=== PATIENT | male | born 1960 | race Caucasian/White ===

== ENCOUNTER → 2017-08-30 | Outpatient (CLI) | payer OTHER ==
[~2017-08-30] MED LIST: ALMASICH PO; ASPI81CH PO; ATOR10 PO; AZAT50 PO; LISI5 PO; LOSA50 PO; METF500C PO; Multivitamin1 EAC1 PO; OMEP20ER PO; PYRI60 PO; SIMV10
== END | disposition home or self-care (01) ==
LOC: LAB 15:45
DX: E11.65 Type 2 diabetes mellitus with hyperglycemia (principal)
CPT/HCPCS: 82043

== ENCOUNTER 2018-07-25 09:55 | Day surgery (SDC) | payer OTHER ==
[~2018-07-25] VITALS: Ht 167.6 cm; Wt 112.5 kg
[~2018-07-25 09:55] MED LIST changes: +GLIP10ER PO; +INSULANPEN SC; +Lisinopril2.5 MG PO; +SIMV10 PO
[2018-07-25] MEDS ORDERED: Cellcept500 MG PO (10:49)
--- NOTE | 2018-07-25 15:00 | NUR ---
07/25/18 1500 AniyaLita L 1234 DISCHARGED HOME IN STABLE CONDITION W/INSTRUCTIONS FOR CARE AND F/U. EYE CARE KIT WAS GIVEN AND SHIELD IBNTACT TO LEFT EYE. HAD NO PAIN AND NO NAUSEA T/O RECOVERY. PAULA PO FLUIDS WELL PRIOR TO DC. AMBU TO CAR W/SBA X1 PAULA WELL
== END 2018-07-25 12:35 | disposition home or self-care (01) ==
LOC: ORSCSDS 09:55
PROVIDERS: Ophthalmology
PROC: 08RK3JZ Replacement of Left Lens with Synthetic Substitute, Percutaneous Approach (ICD-10-PCS; principal; 2018-07-25 11:30)
DX: H25.12 Age-related nuclear cataract, left eye (principal); I10 Essential (primary) hypertension; E11.9 Type 2 diabetes mellitus without complications; G70.00 Myasthenia gravis without (acute) exacerbation; E78.5 Hyperlipidemia, unspecified; Z79.82 Long term (current) use of aspirin; Z79.4 Long term (current) use of insulin; Z79.899 Other long term (current) drug therapy
CPT/HCPCS: 82947; J2001; J2250; J3010; J7120; V2632

== ENCOUNTER 2018-09-23 07:15 | Day surgery (SDC) | payer OTHER ==
[~2018-09-23] VITALS: Ht 167.6 cm; Wt 111.1 kg
[~2018-09-23 07:15] MED LIST changes: +BASAGLAR K100 UNIT/1 SC; +Cellcept500 MG PO; -GLIP10ER PO; +Glucotrol Xl10 MG; +LO-DOSE ASPIRIN81 MG PO
== END 2018-09-23 09:18 | disposition home or self-care (01) ==
LOC: ORSCSDS 07:15
PROVIDERS: Internal Medicine Gastroenterology
PROC: 0DBM8ZX Excision of Descending Colon, Via Natural or Artificial Opening Endoscopic, Diagnostic (ICD-10-PCS; principal; 2018-09-23 08:30)
DX: Z12.11 Encounter for screening for malignant neoplasm of colon (principal); D12.4 Benign neoplasm of descending colon; Z86.010 Personal history of colon polyps; K57.30 Diverticulosis of large intestine without perforation or abscess without bleeding; K64.8 Other hemorrhoids; K64.4 Residual hemorrhoidal skin tags; E11.9 Type 2 diabetes mellitus without complications; E66.01 Morbid (severe) obesity due to excess calories; Z68.39 Body mass index [BMI] 39.0-39.9, adult; Z79.82 Long term (current) use of aspirin; Z79.84 Long term (current) use of oral hypoglycemic drugs; Z79.899 Other long term (current) drug therapy
CPT/HCPCS: 82947; 88305; J0330; J0461; J1980; J2405; J7120

== ENCOUNTER 2018-10-03 12:04 | Day surgery (SDC) | payer OTHER ==
[~2018-10-03] VITALS: Ht 165.1 cm; Wt 111.5 kg
== END 2018-10-03 14:47 | disposition home or self-care (01) ==
LOC: ORSCSDS 12:04
PROVIDERS: Ophthalmology
PROC: 08RJ3JZ Replacement of Right Lens with Synthetic Substitute, Percutaneous Approach (ICD-10-PCS; principal; 2018-10-03 14:00)
DX: H25.11 Age-related nuclear cataract, right eye (principal); E11.9 Type 2 diabetes mellitus without complications; I10 Essential (primary) hypertension; G47.33 Obstructive sleep apnea (adult) (pediatric); E66.01 Morbid (severe) obesity due to excess calories; Z68.41 Body mass index [BMI] 40.0-44.9, adult; Z79.82 Long term (current) use of aspirin; Z79.84 Long term (current) use of oral hypoglycemic drugs; Z79.899 Other long term (current) drug therapy
CPT/HCPCS: 82947; J2250; J3010; V2632

== ENCOUNTER 2019-04-25 20:10 | Observation (INO) | payer OTHER ==
[~2019-04-25] VITALS: Ht 165.1 cm; Wt 107.5 kg
[~2019-04-25 20:10] MED LIST changes: -BASAGLAR K100 UNIT/1 SC; -Cellcept500 MG PO; -LO-DOSE ASPIRIN81 MG PO; -Lisinopril2.5 MG PO; -METF500C PO; -Multivitamin1 EAC1 PO; -PYRI60 PO; -SIMV10 PO
[2019-04-25 20:40] LABS: BASOPHILS ABSOLUTE AUTO 0.03 K/mm3 (0.00-0.23); BASOPHILS PERCENT AUTO 0 % (0-2); EOSINOPHILS PERCENT AUTO 1 % (0-6); Hematocrit 46.7 % (37.0-53.0); Hemoglobin 15.2 g/dL (13.5-17.5); IMMATURE GRAN ABSOLUTE AUTO 0.04 K/mm3 (0.00-0.10); IMMATURE GRAN PERCENT AUTO 1 % (0-1); LYMPHOCYTES ABSOLUTE AUTO 1.66 K/mm3 (0.84-5.20); LYMPHOCYTES PERCENT AUTO 19 % (21-46); MONOCYTES ABSOLUTE AUTO 0.49 K/mm3 (0.16-1.47); MONOCYTES PERCENT AUTO 6 % (4-13); Mean Corpuscular HGB 26.9 pg (26.0-34.0); Mean Corpuscular HGB Conc 32.5 g/dL (31.5-36.5); Mean Corpuscular Volume 83 fL (80-100); Mean Platelet Volume 10.8 fL (9.1-12.4); NEUTROPHILS ABSOLUTE AUTO 6.56 K/mm3 (1.96-9.15); NEUTROPHILS PERCENT AUTO 74 % (41-73); Platelet Count 235 K/mm3 (150-400); RDW Standard Deviation 38.8 fL (35.1-46.3); Red Blood Cell Count 5.65 M/mm3 (4.30-5.90); White Blood Cell Count 8.88 K/mm3 (4.00-11.30)
[2019-04-25 20:56] LABS: Alanine Aminotransfer (ALT/SGP 42 U/L (12-78); Albumin/Globulin Ratio 1.1 (0.8-1.8); Alk Phos 105 U/L (50-136); Anion Gap 9 mmol/L (6-16); Aspartate Aminotrans (AST/SGOT 24 U/L (12-37); Bilirubin, Total 0.5 mg/dL (0.1-1.0); Blood Urea Nitrogen 12 mg/dL (8-24); Bun/Creatinine Ratio 12.5 (12.0-20.0); CO2, Blood 25 mmol/L (21-32); Calcium, Blood 8.9 mg/dL (8.5-10.1); Chloride, Blood 105 mmol/L (98-108); Creatinine, Blood 0.96 mg/dL (0.60-1.20); Globulin, Blood 3.6 g/dL (2.2-4.0); Glomerular Filtration Rate >60 (60-); Glucose, Blood 153 mg/dL (70-99); Potassium, Blood 3.8 mmol/L (3.5-5.5); Sodium, Blood 139 mmol/L (136-145); Total Protein, Blood 7.6 g/dL (6.4-8.2)
[2019-04-25] MEDS ORDERED: METF500C PO (21:36)
[2019-04-25] MEDS ORDERED: Multivitamin1 EAC1 PO (21:37)
[2019-04-25] MEDS ORDERED: SIMV10 PO (21:37)
[2019-04-25] MEDS ORDERED: PYRI60 PO (21:37)
[2019-04-25] MEDS ORDERED: Aspir 8181 MG PO (21:38)
[2019-04-25] MEDS ORDERED: Lisinopril2.5 MG PO (21:38)
[2019-04-25] MEDS ORDERED: BASAGLAR K100 UNIT/1 SC (21:38)
[2019-04-25] MEDS ORDERED: Cellcept500 MG PO (21:38)
[2019-04-26 05:10] LABS: Cholesterol 181 mg/dL (50-200); HDL Cholesterol 36 mg/dL (>39); LDL/HDL RATIO 2.3; Low Density Lipoprotein Chol 82 mg/dL (0-110); Triglycerides 313 mg/dL (30-160); Very Low Density Lipoprot Chol 62 mg/dL (6-32)
--- NOTE | 2019-04-26 06:36 | NUR ---
SHIFT SUMMARY PT APPEARED TO REST WELL AFTER ARRIVING TO UNIT. NO COMPPLAINTS OF N/T, NO PAIN, NO SOB. WILL CONTINUE TO MONITOR.
--- NOTE | 2019-04-26 11:02 | NUR ---
Echocardiogram using 9.0ml fo agitated saline cotrast performed.
--- NOTE | 2019-04-27 03:45 | NUR ---
SHIFT SUMMARY PT HAS APPEARED TO REST COMFORTABLY THIS SHIFT. HE HAS AN ORDER IN FOR CELLCEPT 2 TABS TWICE DAILY BUT REFUSES TO TAKE BOTH TABS. SAYS HE HAS ONLY TAKEN ONE TAB BID FOR THE PAST YEAR EVEN THOUGH HIS PRESCRIPTION IS FOR THE 2 TABS BID. WILL CONTINUE TO MONITOR.
--- NOTE | 2019-04-27 12:30 | NUR ---
D/C ORDER STATES TO CONTINUE ATORVASTATIN. PT IS ON SIMVASTATIN AT HOME. PER CJ PIZANO FOR PT TO CONTINUE HOME MED OF SIMVASTATIN D/C MED REC SHOWS.
--- NOTE | 2019-04-27 13:08 | NUR ---
PT DISCHARGED PT DISCHARGED IN STABLE CONDITION WITH VSS. PT EDUCATED ON DC INSTRUCTIONS & FOLLOW UP APPOINTMENTS. PT WHEELED OUT BY AIDE & DRIVEN HOME BY COUSIN. PT DENIES QUESTIONS PRIOR TO DC.
== END 2019-04-27 12:54 | disposition home or self-care (01) ==
LOC: ER 20:10 → MEDS 20:11 → ER 22:00 → MEDS 22:35
PROVIDERS: Emergency Medicine; Nurse Practitioner Acute Care; ADMIT Internal Medicine
DX: G45.9 Transient cerebral ischemic attack, unspecified (principal); E11.9 Type 2 diabetes mellitus without complications; G70.00 Myasthenia gravis without (acute) exacerbation; I10 Essential (primary) hypertension; E66.09 Other obesity due to excess calories; G47.33 Obstructive sleep apnea (adult) (pediatric); Z79.899 Other long term (current) drug therapy; Z79.4 Long term (current) use of insulin; Z68.41 Body mass index [BMI] 40.0-44.9, adult
CPT/HCPCS: 36415; 70450; 70496; 70498; 70551; 80053; 80061; 82947; 85025; 93005; 93010; 93306; 94660; 94762; 97161; 99285-25; J1650; J2060; J7517; Q9967

== ENCOUNTER → 2024-01-23 | Outpatient (CLI) | payer OTHER ==
[~2024-01-23] MED LIST changes: +Aspir 8181 MG PO; +BASAGLAR K100 UNIT/1 SC; +Cellcept500 MG PO; +Lisinopril2.5 MG PO; +METF500C PO; +Multivitamin1 EAC1 PO; +PYRI60 PO; +SIMV10 PO
[2024-01-23 18:47] LABS: BASOPHILS ABSOLUTE AUTO 0.03 K/mm3 (0.00-0.23); BASOPHILS PERCENT AUTO 0 % (0-2); EOSINOPHILS ABSOLUTE AUTO 0.16 K/mm3 (0.00-0.68); EOSINOPHILS PERCENT AUTO 2 % (0-6); Hematocrit 49.1 % (37.0-53.0); Hemoglobin 15.9 g/dL (13.5-17.5); IMMATURE GRAN ABSOLUTE AUTO 0.02 K/mm3 (0.00-0.10); IMMATURE GRAN PERCENT AUTO 0 % (0-1); LYMPHOCYTES ABSOLUTE AUTO 2.02 K/mm3 (0.84-5.20); LYMPHOCYTES PERCENT AUTO 26 % (21-46); MONOCYTES PERCENT AUTO 6 % (4-13); Mean Corpuscular HGB 26.1 pg (26.0-34.0); Mean Corpuscular HGB Conc 32.4 g/dL (31.5-36.5); Mean Corpuscular Volume 81 fL (80-100); Mean Platelet Volume 10.9 fL (9.1-12.4); NEUTROPHILS ABSOLUTE AUTO 5.09 K/mm3 (1.96-9.15); NEUTROPHILS PERCENT AUTO 65 % (41-73); Platelet Count 232 K/mm3 (150-400); RDW Coefficient Variation 13.9 % (11.7-14.2); RDW Standard Deviation 40.3 fL (35.1-46.3); White Blood Cell Count 7.82 K/mm3 (4.00-11.30)
[2024-01-23 19:30] LABS: Microalb/Creat Ratio UR, Rand 19.143 mg/g (0.000-30.000); Microalbumin, Random Urine 46.9 mg/L (0.000-20.000)
[2024-01-23 19:52] LABS: Alanine Aminotransfer (ALT/SGP 32 U/L (12-78); Albumin/Globulin Ratio 1.1 (0.8-1.8); Alk Phos 109 U/L (50-136); Anion Gap 12 mmol/L (3-11); Aspartate Aminotrans (AST/SGOT 14 U/L (12-37); Bilirubin, Total 0.9 mg/dL (0.1-1.0); Blood Urea Nitrogen 12 mg/dL (8-24); Bun/Creatinine Ratio 13.8 (12.0-20.0); CHOL/HDL RATIO 3.7; CO2, Blood 23 mmol/L (21-32); Calcium, Blood 9.1 mg/dL (8.5-10.1); Chloride, Blood 107 mmol/L (98-108); Cholesterol 174 mg/dL (50-200); Creatinine, Blood 0.87 mg/dL (0.60-1.20); Globulin, Blood 3.6 g/dL (2.2-4.0); Glomerular Filtration Rate 97 (60-); Glucose, Blood 113 mg/dL (70-99); HDL Cholesterol 47 mg/dL (>39); Low Density Lipoprotein Chol 93 mg/dL (0-110); Potassium, Blood 4.2 mmol/L (3.5-5.5); Sodium, Blood 138 mmol/L (136-145); Total Protein, Blood 7.6 g/dL (6.4-8.2); Triglycerides 168 mg/dL (30-160); Very Low Density Lipoprot Chol 34 mg/dL (6-32)
== END | disposition home or self-care (01) ==
LOC: LAB SHORT 17:15
PROVIDERS: Physician Assistant
DX: E11.22 Type 2 diabetes mellitus with diabetic chronic kidney disease (principal); N18.9 Chronic kidney disease, unspecified; Z79.899 Other long term (current) drug therapy
CPT/HCPCS: 80053; 80061; 82043; 82306; 82570; 83036; 84443; 85025

== ENCOUNTER → 2024-09-10 | Outpatient (CLI) | payer OTHER ==
[2024-09-10 17:16] LABS: BASOPHILS ABSOLUTE AUTO 0.05 K/mm3 (0.00-0.23); BASOPHILS PERCENT AUTO 1 % (0-2); EOSINOPHILS ABSOLUTE AUTO 0.16 K/mm3 (0.00-0.68); EOSINOPHILS PERCENT AUTO 2 % (0-6); Hematocrit 49.5 % (37.0-53.0); Hemoglobin 16.1 g/dL (13.5-17.5); IMMATURE GRAN ABSOLUTE AUTO 0.03 K/mm3 (0.00-0.10); IMMATURE GRAN PERCENT AUTO 0 % (0-1); LYMPHOCYTES ABSOLUTE AUTO 1.99 K/mm3 (0.84-5.20); LYMPHOCYTES PERCENT AUTO 23 % (21-46); MONOCYTES ABSOLUTE AUTO 0.54 K/mm3 (0.16-1.47); MONOCYTES PERCENT AUTO 6 % (4-13); Mean Corpuscular HGB 27.2 pg (26.0-34.0); Mean Corpuscular HGB Conc 32.5 g/dL (31.5-36.5); Mean Corpuscular Volume 84 fL (80-100); Mean Platelet Volume 10.9 fL (9.1-12.4); NEUTROPHILS ABSOLUTE AUTO 5.99 K/mm3 (1.96-9.15); NEUTROPHILS PERCENT AUTO 68 % (41-73); Platelet Count 256 K/mm3 (150-400); RDW Coefficient Variation 14.1 % (11.7-14.2); RDW Standard Deviation 43.1 fL (35.1-46.3); Red Blood Cell Count 5.91 M/mm3 (4.30-5.90); White Blood Cell Count 8.76 K/mm3 (4.00-11.30)
[2024-09-10 18:23] LABS: Anion Gap 12 mmol/L (3-11); Blood Urea Nitrogen 16 mg/dL (8-24); Bun/Creatinine Ratio 16.3 (12.0-20.0); CHOL/HDL RATIO 2.8; CO2, Blood 25 mmol/L (21-32); Calcium, Blood 9.1 mg/dL (8.5-10.1); Chloride, Blood 103 mmol/L (98-108); Cholesterol 128 mg/dL (50-200); Creatinine, Blood 0.98 mg/dL (0.60-1.20); Glomerular Filtration Rate 86 (60-); Glucose, Blood 159 mg/dL (70-99); HDL Cholesterol 45 mg/dL (>39); LDL/HDL RATIO 1.1; Low Density Lipoprotein Chol 50 mg/dL (0-110); Potassium, Blood 4.5 mmol/L (3.5-5.5); Sodium, Blood 135 mmol/L (136-145); Triglycerides 167 mg/dL (30-160); Very Low Density Lipoprot Chol 33 mg/dL (6-32)
== END ==
LOC: LAB 16:09 → LAB SHORT 16:09
PROVIDERS: Physician Assistant
DX: Z51.81 Encounter for therapeutic drug level monitoring (principal); Z79.899 Other long term (current) drug therapy
CPT/HCPCS: 80048; 80061; 82306; 83036; 84443; 85025

== ENCOUNTER → 2025-03-23 | Outpatient (CLI) | payer OTHER ==
[~2025-03-23] MED LIST changes: +ATOR40TA PO; +HYDHCL25 PO; -Lisinopril2.5 MG PO; +MYCO250 PO; +NOVOLOG FL100 UNIT/3; +OZEMPIC0.25 MG/02 SC; +STEGLATRO15 MG PO; +TAMS.4ER PO; +TRAZ150T57 PO; +Zestril30 MG PO
[2025-03-23 20:33] LABS: Anion Gap 11 mmol/L (3-11); Blood Urea Nitrogen 18 mg/dL (8-24); CO2, Blood 23 mmol/L (21-32); Calcium, Blood 9.6 mg/dL (8.5-10.1); Chloride, Blood 103 mmol/L (98-108); Creatinine, Blood 0.78 mg/dL (0.60-1.20); Glucose, Blood 175 mg/dL (70-99); Potassium, Blood 4.3 mmol/L (3.5-5.5); Prostate Specific Antigen 0.721 ng/mL (0.000-4.000); Sodium, Blood 133 mmol/L (136-145)
== END ==
LOC: LAB SHORT 17:23 → LAB 17:23
PROVIDERS: Physician Assistant
DX: Z12.5 Encounter for screening for malignant neoplasm of prostate (principal); E11.22 Type 2 diabetes mellitus with diabetic chronic kidney disease
CPT/HCPCS: 80048; G0103